=== PATIENT | male | born 1945 | race Caucasian/White ===

== ENCOUNTER 2016-10-31 08:15 | Outpatient (CLI) | payer MEDICARE, OTHER ==
[2016-10-31 13:24] LABS: CREATININE 1.3 mg/dL (0.6-1.2); POTASSIUM 4.5 mmol/L (3.5-5.0)
== END 2016-10-31 08:16 | disposition home or self-care (01) ==
LOC: LAB.WCP 08:15
PROVIDERS: ATTEND Internal Medicine Cardiovascular Disease
DX: I48.91 Unspecified atrial fibrillation (principal)
CPT/HCPCS: 36415; 80048

== ENCOUNTER 2017-10-30 08:00 | Outpatient (CLI) | payer MEDICARE, OTHER ==
[2017-10-30 12:58] LABS: CALCIUM 8.8 mg/dL (8.5-10.3); CREATININE 1.1 mg/dL (0.6-1.2)
== END 2017-10-30 08:01 | disposition home or self-care (01) ==
LOC: LAB.WCP 08:00
PROVIDERS: ATTEND Internal Medicine Cardiovascular Disease
DX: I48.92 Unspecified atrial flutter (principal)
CPT/HCPCS: 36415; 80048

== ENCOUNTER 2019-10-28 09:25 | Outpatient (CLI) | payer MEDICARE, OTHER ==
[2019-10-28 14:05] LABS: CALCIUM 8.9 mg/dL (8.5-10.3); CREATININE 1.1 mg/dL (0.6-1.2)
== END 2019-10-28 23:59 | disposition home or self-care (01) ==
LOC: LAB.WCP 09:25
PROVIDERS: ATTEND Internal Medicine Cardiovascular Disease
DX: I48.92 Unspecified atrial flutter (principal); I71.2 Thoracic aortic aneurysm, without rupture
CPT/HCPCS: 36415; 80048

== ENCOUNTER 2020-04-13 08:34 | Outpatient (CLI) | payer MEDICARE, OTHER ==
[2020-04-13 12:04] LABS: CALCIUM 9.3 mg/dL (8.5-10.3); CREATININE 1.2 mg/dL (0.6-1.2)
== END 2020-04-13 23:59 | disposition home or self-care (01) ==
LOC: LAB.WCP 08:34
PROVIDERS: ATTEND Internal Medicine Cardiovascular Disease
DX: I48.91 Unspecified atrial fibrillation (principal)
CPT/HCPCS: 36415; 80048

== ENCOUNTER 2020-07-04 08:00 | Outpatient (CLI) | payer MEDICARE, OTHER ==
[2020-07-04 13:35] LABS: BASOPHILS # (AUTO) 0.1 10^3/uL (0.0-0.1); BASOPHILS % (AUTO) 0.5 %; EOSINOPHILS # (AUTO) 0.8 10^3/uL (0.0-0.7); EOSINOPHILS % (AUTO) 6.9 %; HGB - HEMOGLOBIN 16.2 g/dL (14.0-18.0); LYMPHOCYTES # (AUTO) 0.5 10^3/uL (1.5-3.5); LYMPHOCYTES % (AUTO) 4.3 %; MEAN CORPUSCULAR HGB CONC 33.4 g/dL (32.0-36.0); MEAN CORPUSCULAR VOLUME 92.9 fL (80.0-94.0); MEAN PLATELET VOLUME 10.7 fL (7.4-11.4); MONOCYTES # (AUTO) 1.4 10^3/uL (0.0-1.0); MONOCYTES % (AUTO) 11.3 %; NEUTROPHILS # (AUTO) 9.3 10^3/uL (1.5-6.6); PLT - PLATELET COUNT 227 10^3/uL (130-450); RED BLOOD COUNT 5.22 10^6/uL (4.70-6.10); RED CELL DISTRIBUTION WIDTH 15.2 % (12.0-15.0); WHITE BLOOD COUNT 12.2 x10^3/uL (4.8-10.8)
[2020-07-04 18:33] LABS: ALBUMIN 3.9 g/dL (3.2-5.5); ALBUMIN/GLOBULIN RATIO 1.4 (1.0-2.2); CALCIUM 9.3 mg/dL (8.5-10.3); CREATININE 1.2 mg/dL (0.6-1.2); TOTAL PROTEIN 6.7 g/dL (6.7-8.2)
== END 2020-07-04 08:01 | disposition home or self-care (01) ==
LOC: LAB.N 08:00
PROVIDERS: ATTEND Nurse Practitioner
DX: L29.9 Pruritus, unspecified (principal)
CPT/HCPCS: 36415; 80053; 85025; 85651

== ENCOUNTER 2020-07-05 10:34 | Emergency (ER) | payer MEDICARE, OTHER ==
--- NOTE | 2020-07-05 12:03 | ED Physician Documentation ---
History of Present Illness - Stated complaint Stated Complaint: RASH - Chief complaint Chief Complaint: Allergic Rx - Additonal information Additional information: 75-year-old male presents the emergency department for evaluation of a diffuse generalized body rash. He reports that it began 8 days ago. Initially it was just on his feet as red patches but is slowly progressed to become generalized. He has multiple raised erythematous macular papular rash on his arms legs and neck. There is normal mucous membrane involvement, cough dyspnea fevers. He did see his primary care doctor 4 days ago and was placed on a 10-day prednisone steroid taper as well as famotidine and cetirizine. he describes the rash as diffusely itch. he is also applying a steroid cream to the rash without relief. he is also taking hydorxizine No changes in baseline medications which include omeprazole and sotalol. He also takes various vitamins. Review of Systems Constitutional: reports: Reviewed and negative Eyes: reports: Reviewed and negative Ears: reports: Reviewed and negative Nose: reports: Reviewed and negative Throat: reports: Dental pain / toothache Cardiac: reports: Reviewed and negative Respiratory: reports: Reviewed and negative GI: reports: Reviewed and negative : reports: Reviewed and negative Skin: reports: Rash Musculoskeletal: reports: Reviewed and negative PD PAST MEDICAL HISTORY - Past Medical History Past Medical History: Yes Cardiovascular: Atrial flutter, Arrhythmia Respiratory: Other Neuro: None Endocrine/Autoimmune: None GI: GERD : None HEENT: None Psych: None Musculoskeletal: Osteoarthritis Derm: None - Past Surgical History General: Colonoscopy, EGD, Other HEENT: Tonsil/Adenoidectomy - Present Medications Home Medications: Ambulatory Orders Medication Instructions Recorded Confirmed Ascorbic Acid [Vitamin C] 100 mg PO DAILY 06/18/13 07/31/18 Aspirin [Lite Coat Aspirin] 81 mg PO DAILY 06/18/13 07/31/18 Cholecalciferol (Vitamin D3) 2,000 unit PO DAILY 06/18/13 07/31/18 [Vitamin D-3] Fluticasone [Flonase] 1 sprays RYAN DAILY PRN 06/18/13 07/31/18 Multivitamin [Multivitamins] 1 each PO DAILY 06/18/13 07/31/18 Sotalol [Betapace] 80 mg PO BID 06/18/13 07/31/18 Vitamin E 100 unit PO DAILY 06/18/13 07/31/18 Magnesium Oxide [Mag Ox] 400 mg PO DAILY 07/31/18 07/31/18 Omeprazole 20 mg PO BID 07/31/18 07/31/18 - Allergies Allergies/Adverse Reactions: Allergies Allergy/AdvReac Type Severity Reaction Status Date / Time No Known Drug Allergies Allergy Verified 07/05/20 11:02 - Social History Does the pt smoke?: No Smoking Status: Never smoker Does the pt drink ETOH?: Yes - Immunizations Immunizations are current?: Yes - POLST Patient has POLST: Yes PD ED PE EXPANDED - General General: Alert, No acute distress, Well developed/nourished - HEENT HEENT: Atraumatic, PERRL, EOMI, Dry mucous membranes - Neck Neck: Supple w/out meningeal sx, No tenderness. No: Adenopathy - Cardiac Cardiac: Regular Rate, Regular Rhythm, Radial strong equal, Pedal strong equal, Cap refill < 2 sec. No: Murmur Present - Respiratory Respiratory: Clear to ausultation tesfaye. No: Distress, Labored - Abdomen Abdomen: Normal Bowel sounds. No: Tender to palpation - Derm Derm: Normal color (diffuse macular papilar rash on arms, legs, torso. there are 2 raidsed, red scaling patches on left torso), Warm and dry, Rash Results - Vitals Vitals: Vital Signs - 24 hr 07/05/20 11:02 Temperature 36.3 C L Heart Rate 69 Respiratory 16 Rate Blood Pressure 124/66 O2 Saturation 97 Oxygen O2 Source Room air PD MEDICAL DECISION MAKING - ED course Complexity details: reviewed results, re-evaluated patient, considered differential, d/w patient ED course: 75-year-old male presents the emergency department for evaluation of diffuse maculopapular rash that began 8 days ago. It is diffusely itchy. He has no previous fevers. He did see his primary care provider about 4 days ago and was started on a 10-day prednisone taper. On his left thorax he does have 2 raised red scaling macular lesions that I think may represent a herald patch. Patient denies that he developed these patches before the rest of the rash but cannot be 100% certain. There is no oral involvement or ocular involvement. He otherwise appears very well with unremarkable vitals. I suspect that this may be a pityriasis rosacea. However he is on a steroid taper. He did have screening labs completed yesterday that were without concern. I have advised him to use calamine lotion to help with itch as he is already on multiple antihistamines and prednisone. Patient was advised to return to the emergency department for any oral or ocular involvement. Any chest pain shortness of breath hemoptysis or fevers Departure - Departure Disposition: 01 Home, Self Care Clinical Impression: Rash Condition: Stable Record reviewed to determine appropriate education?: Yes Follow-Up: She Thomas DO [Primary Care Provider] - Comments: Amadeo is we discussed I think that your rash may be a condition called pityriasis rosea. You have 2 patches on your left chest that look like a herald patch. You are taking the appropriate medications already for itch such as the hydroxyzine, Pepcid and cetirizine. I would discuss the prednisone taper with your primary care provider. If at any point the rash changes, begins to blister, you have rash or blistering in your mouth or in your eyes, develop chest pain or fevers please return to the ER for a second look. As we discussed if this is pityriasis the rash may take weeks to even a few months to resolve. In the short-term I do recommend a cool compress over your chest where itches the most as well as calamine lotion.
[2020-07-05 12:20] VITALS: BP 116/76
== END 2020-07-05 12:25 | disposition home or self-care (01) ==
LOC: ED 10:34
DX: R21 Rash and other nonspecific skin eruption (principal); L29.9 Pruritus, unspecified; Z79.82 Long term (current) use of aspirin
CPT/HCPCS: 99281; 99284

== ENCOUNTER 2020-07-29 15:27 | Emergency (ER) | payer MEDICARE, OTHER ==
--- NOTE | 2020-07-29 15:45 | ED Physician Documentation ---
PD HPI ABD PAIN - Stated complaint Stated Complaint: LOW ABD PX - Chief complaint Chief Complaint: Abd Pain - History obtained from History obtained from: Patient - Treatment prior to arrival Treatment prior to arrival: Pain is worse laying and sitting than it is standing. He has tried numerous Medications at home including aspirin, ibuprofen, and Celebrex, all without relief - Additional information Additional information: 75-year-old gentleman has chronic pelvic pain. Previously seen by urologist and told it was chronic epididymitis. Over the last 4 days the pain has been, progressive and much more severe. It is pelvic and really eating and radiating to the right inguinal and right testicle region. He has had some soft and nonformed and more frequent stools over the last few years and had a colonoscopy for that which was notable for polyps and diverticulosis. Last night the pain was unbearable and he was unable to sleep because of it. He thinks because of pain he had some very mild nausea because of it. He has a history of GERD for which he takes omeprazole and a flutter on sotalol and magnesium but not anticoagulated. Review of Systems Ten Systems: 10 systems reviewed and negative Constitutional: denies: Fever Cardiac: denies: Chest pain / pressure, Palpitations Respiratory: denies: Dyspnea, Cough PD PAST MEDICAL HISTORY - Past Medical History Past Medical History: Yes Cardiovascular: Atrial flutter, Arrhythmia Respiratory: Other Neuro: None Endocrine/Autoimmune: None GI: GERD : None HEENT: None Psych: None Musculoskeletal: Osteoarthritis Derm: None - Past Surgical History General: Colonoscopy, EGD, Other HEENT: Tonsil/Adenoidectomy - Present Medications Home Medications: Ambulatory Orders Medication Instructions Recorded Confirmed Ascorbic Acid [Vitamin C] 100 mg PO DAILY 06/18/13 07/29/20 Aspirin [Lite Coat Aspirin] 81 mg PO DAILY 06/18/13 07/29/20 Cholecalciferol (Vitamin D3) 2,000 unit PO DAILY 06/18/13 07/29/20 [Vitamin D-3] Fluticasone [Flonase] 1 sprays RYAN DAILY PRN 06/18/13 07/29/20 Multivitamin [Multivitamins] 1 each PO DAILY 06/18/13 07/29/20 Sotalol [Betapace] 80 mg PO BID 06/18/13 07/29/20 Vitamin E 100 unit PO DAILY 06/18/13 07/29/20 Magnesium Oxide [Mag Ox] 400 mg PO DAILY 07/31/18 07/29/20 Omeprazole 20 mg PO BID 07/31/18 07/29/20 Docusate Sodium [Dulcolax Stool 100 mg PO BID #30 cap 07/29/20 Softener] Doxepin [SINEquan] 10 mg PO TID PRN #30 cap 07/29/20 Oxycodone HCl/Acetaminophen 1 - 2 each PO Q6H PRN #20 tab 07/29/20 [Percocet 5-325 mg Tablet] Selenium 1 tab PO DAILY 07/29/20 07/29/20 Sulfamethox/Trimeth 800/160 1 each PO BID #20 tab 07/29/20 [Bactrim Ds 800/160] polyethylene glycoL 3350 [Miralax] 17 gm PO DAILY PRN #1 bottle 07/29/20 - Allergies Allergies/Adverse Reactions: Allergies Allergy/AdvReac Type Severity Reaction Status Date / Time No Known Drug Allergies Allergy Verified 07/29/20 15:42 - Social History Does the pt smoke?: No Smoking Status: Never smoker Does the pt drink ETOH?: Yes - Immunizations Immunizations are current?: Yes - POLST Patient has POLST: Yes PD ED PE NORMAL - Vitals Vital signs reviewed: Yes - General General: Alert and oriented X 3, Other (uncomfortable) - HEENT HEENT: PERRL, EOMI - Neck Neck: Supple, no meningeal sign, No bony TTP - Cardiac Cardiac: RRR, No murmur - Respiratory Respiratory: No respiratory distress, Clear bilaterally - Abdomen Abdomen: Soft, Non tender - Male Male : Other (Mild R testicular TTP, no swelling, normal lie) - Back Back: No CVA TTP - Derm Derm: Other (diffuse severe pityriasis) - Extremities Extremities: No edema, No calf tenderness / cord - Neuro Neuro: Alert and oriented X 3, Normal speech Results - Vitals Vitals: Vital Signs - 24 hr 07/29/20 07/29/20 15:29 16:39 Temperature 35.9 C L Heart Rate 57 L 53 L Respiratory 16 16 Rate Blood Pressure 132/71 H 123/81 H O2 Saturation 99 98 Oxygen O2 Source Room air - Labs Labs: Laboratory Tests 07/29/20 07/29/20 07/29/20 15:50 15:50 15:50 WBC 15.6 H RBC 5.50 Hgb 17.2 Hct 50.7 MCV 92.2 MCH 31.3 H MCHC 33.9 RDW 16.5 H Plt Count 185 MPV 9.7 Neut # (Auto) Not Reportable Lymph # (Auto) Not Reportable Brantley # (Auto) Not Reportable Eos # (Auto) Not Reportable Baso # (Auto) Not Reportable Absolute Nucleated RBC Not Reportable Total Counted 100 Band Neuts % (Manual) 3 Abnorm Lymph % (Manual) 0 Nucleated RBC % Not Reportable Neutrophils # (Manual) 14.8 H Lymphocytes # (Manual) 0.2 L Monocytes # (Manual) 0.2 Eosinophils # (Manual) 0.5 Basophils # (Manual) 0.0 Differential Comment MANUAL DIFFERENTIAL WBC Morphology 1+ TOXIC GRANULATION Platelet Estimate NORMAL (130-450,000) Platelet Morphology NORMAL APPEARANCE RBC Morph Micro Appear NORMAL APPEARANCE PT 13.5 H INR 1.2 Sodium 126 L Potassium 4.0 Chloride 88 L Carbon Dioxide 25 Anion Gap 13.0 BUN 32 H Creatinine 1.2 Estimated GFR (MDRD) 59 L Glucose 115 H Calcium 8.7 Total Bilirubin 1.3 H AST 11 ALT 20 Alkaline Phosphatase 71 Total Protein 5.9 L Albumin 3.5 Globulin 2.4 Albumin/Globulin Ratio 1.5 Lipase 30 Urine Color Urine Clarity Urine pH Ur Specific Cotter Urine Protein Urine Glucose (UA) Urine Ketones Urine Occult Blood Urine Nitrite Urine Bilirubin Urine Urobilinogen Ur Leukocyte Esterase Ur Microscopic Review Urine Culture Comments 07/29/20 17:50 WBC RBC Hgb Hct MCV MCH MCHC RDW Plt Count MPV Neut # (Auto) Lymph # (Auto) Brantley # (Auto) Eos # (Auto) Baso # (Auto) Absolute Nucleated RBC Total Counted Band Neuts % (Manual) Abnorm Lymph % (Manual) Nucleated RBC % Neutrophils # (Manual) Lymphocytes # (Manual) Monocytes # (Manual) Eosinophils # (Manual) Basophils # (Manual) Differential Comment WBC Morphology Platelet Estimate Platelet Morphology RBC Morph Micro Appear PT INR Sodium Potassium Chloride Carbon Dioxide Anion Gap BUN Creatinine Estimated GFR (MDRD) Glucose Calcium Total Bilirubin AST ALT Alkaline Phosphatase Total Protein Albumin Globulin Albumin/Globulin Ratio Lipase Urine Color YELLOW Urine Clarity CLEAR Urine pH 6.0 Ur Specific Cotter <=1.005 Urine Protein NEGATIVE Urine Glucose (UA) NEGATIVE Urine Ketones NEGATIVE Urine Occult Blood NEGATIVE Urine Nitrite NEGATIVE Urine Bilirubin NEGATIVE Urine Urobilinogen 0.2 (NORMAL) Ur Leukocyte Esterase NEGATIVE Ur Microscopic Review NOT INDICATED Urine Culture Comments NOT INDICATED PD MEDICAL DECISION MAKING - ED course ED course: 75-year-old gentleman with a long history of right testicular pain and occasional pelvic pain presents with this as bad as it has ever been over the last few days. He has a fairly benign abdominal exam and mildly tender scrotal exam on the right. No evidence of hernia. No clinical evidence of torsion. Labs show an elevated white count with left shift, total white count was 15.6. Chemistries are notable for sodium of 126, BUN of 32. CT of the abdomen pelvis shows gallstones, but this is not consistent with a clinical syndrome, he has diverticulosis without obvious diverticulitis. No evidence of urinary tract stone. Ultrasound of the scrotum showed normal flow. Heterogeneity of the epididymi but no cause of pain. His pain improved after divided doses of Dilaudid and Toradol. During his ED course he remained nontender to abdominal examination and was feeling better. Findings were discussed with him and his . Note made that the leukocytosis could certainly be from the fact that he is on prednisone for his pityriasis rosea currently. He was offered observation stay in the hospital for monitoring of his sodium, pain control and observation of his abdominal pain which he declined. At this juncture we will treat him as sort of a subclinical acute on chronic epididymitis with Bactrim noting that he cannot take Cipro as it interacts with the sotalol. Also he is having a lot of itching from the pityriasis and poor sleep so we will add doxepin to the regimen as well. Departure - Departure Disposition: 01 Home, Self Care Clinical Impression: Pelvic pain in male, Testicular pain, right, Epididymitis, Hyponatremia Condition: Good Record reviewed to determine appropriate education?: Yes Instructions: ED Epididymitis Follow-Up: She Thomas DO [Primary Care Provider] - Prescriptions: Sulfamethox/Trimeth 800/160 [Bactrim Ds 800/160] 1 each PO BID #20 tab Docusate Sodium [Dulcolax Stool Softener] 100 mg PO BID #30 cap polyethylene glycoL 3350 [Miralax] 17 gm PO DAILY PRN #1 bottle PRN Reason: Constipation Oxycodone HCl/Acetaminophen [Percocet 5-325 mg Tablet] 1 - 2 each PO Q6H PRN #20 tab PRN Reason: pain Doxepin [SINEquan] 10 mg PO TID PRN #30 cap PRN Reason: Itching Comments: As discussed, your findings today show that you have gallstones and diverticulosis but not necessarily diverticulitis. Some chronic changes of both epididymitis, and elevated white count which could be from infection, inflammation, or the steroids. Your sodium is low, lower than it has been for you. This could also be partially due to the steroids. For that please limit the amount of water you drink to 2 to 3 L/day and that should be rechecked with Dr. Thomas next week. We are treating you with Bactrim for potential epididymitis, note that this is not the usual antibiotic for this issue, but the usual antibiotic is contraindicated with your sotalol. Return if worsening.
[2020-07-29 15:58] LABS: BASOPHILS % (AUTO) 0.3 %; HGB - HEMOGLOBIN 17.2 g/dL (14.0-18.0); MONOCYTES % (AUTO) 2.4 %
[2020-07-29] MEDS ORDERED: HYDROmorphone 1 MG/ML CARPUJECT IVP STA ×2 (15:58→16:31)
[2020-07-29] MEDS ORDERED: SODIUM CHLORIDE 0.9% 1,000 ML IV STA (15:58)
[2020-07-29] MEDS ORDERED: ONDANSETRON 4 MG/2 ML VIAL IVP STA (15:58)
[2020-07-29 16:02] LABS: HCT - HEMATOCRIT 50.7 % (42.0-52.0); LYMPHOCYTES % (AUTO) 3.7 %; MEAN CORPUSCULAR HEMOGLOBIN 31.3 pg (27.0-31.0); MEAN CORPUSCULAR HGB CONC 33.9 g/dL (32.0-36.0); MEAN CORPUSCULAR VOLUME 92.2 fL (80.0-94.0); MEAN PLATELET VOLUME 9.7 fL (7.4-11.4); NEUTROPHILS % (AUTO) 88.1 %; PLT - PLATELET COUNT 185 10^3/uL (130-450); RED CELL DISTRIBUTION WIDTH 16.5 % (12.0-15.0); WHITE BLOOD COUNT 15.6 x10^3/uL (4.8-10.8)
[2020-07-29 16:04] LABS: ABNORMAL LYMPHS % (MANUAL) 0 %; INR 1.2 (0.8-1.2); PT - PROTHROMBIN TIME 13.5 secs (9.9-12.6)
[2020-07-29 16:11] LABS: ALBUMIN 3.5 g/dL (3.2-5.5); ALBUMIN/GLOBULIN RATIO 1.5 (1.0-2.2); BILIRUBIN,TOTAL 1.3 mg/dL (0.2-1.0); CALCIUM 8.7 mg/dL (8.5-10.3); CREATININE 1.2 mg/dL (0.6-1.2); TOTAL PROTEIN 5.9 g/dL (6.7-8.2)
[2020-07-29] MEDS ORDERED: IOVERSOL 320 100 ML VIAL IVP ONE ×2 (16:14→17:15)
[2020-07-29 16:24] LABS: BAND NEUTROPHILS % (MANUAL) 3 %; EOSINOPHILS # (MANUAL) 0.5 10^3/uL (0-0.7); LYMPHOCYTES # (MANUAL) 0.2 10^3/uL (1.5-3.5); LYMPHOCYTES % (MANUAL) 1 %; MONOCYTES # (MANUAL) 0.2 10^3/uL (0.0-1.0); NEUTROPHILS # (MANUAL) 14.8 10^3/uL (1.5-6.6); PLATELET ESTIMATE, MANUAL NORMAL (130-450,000) (NORMAL); PLATELET MORPHOLOGY NORMAL APPEARANCE (NORMAL); RBC MORPHOLOGY (MULTIPLE) NORMAL APPEARANCE (NORMAL); WBC MORPHOLOGY (MULTIPLE) 1+ TOXIC GRANULATION (NORMAL)
[2020-07-29 16:25] LABS: DIFFERENTIAL COMMENT MANUAL DIFFERENTIAL
[2020-07-29] MEDS ORDERED: KETOROLAC 30 MG/ML VIAL IVP STA (16:31)
[2020-07-29 16:40] VITALS: BP 123/81
--- NOTE | 2020-07-29 17:41 | CT Report ---
PROCEDURE: Abdomen/Pelvis W INDICATIONS: Low abd pain IV only CONTRAST: IV CONTRAST: Optiray 320 ml: 100 PO CONTRAST: *NO PO CONTRAST TECHNIQUE: After the administration of contrast, 5 mm thick sections acquired from the diaphragms to the sym physis. 5 mm thick coronal and sagittal reformats were acquired. For radiation dose reduction, the following was used: automated exposure control, adjustment of mA and/or kV according to patient size . COMPARISON: None. FINDINGS: Image quality: Excellent. ABDOMEN: Lung bases: Lung bases are clear. Heart size is normal. Solid organs: Liver and spleen are normal in size and enhancement. Gallbladder contains multiple sm all to moderate-sized faintly calcified gallstones, none of which appear to be obstructive or associa scott with evidence of acute cortical cysts sinuses. Biliary system is non dilated. Pancreas enhances normally. No adrenal nodules. Kidneys demonstrate normal size and enhancement, without hydronephro sis. Peritoneum and bowel: Bowel loops demonstrate normal wall thickness and caliber. No free fluid or a ir. Nodes and vessels: No retroperitoneal or mesenteric adenopathy by size criteria. Aorta and inferior vena cava are normal in size. Miscellaneous: No ventral hernias. PELVIS: Genitourinary: Bladder wall thickness is normal. Miscellaneous: No inguinal hernias or adenopathy. Extensive sigmoid diverticulosis is present witho ut definite acute diverticulitis. Bones: No suspicious bony lesions. No vertebral body compression fractures. IMPRESSION: Multiple gallstones are present within the gallbladder lumen of a size that could produc e cystic duct or common duct obstruction but currently no ductal calculus is suspected. Sigmoid diverticulosis is prominent but there is no acute diverticulitis identified at this time. No distal urinary tract stone is found either. Reviewed by: Pacheco Alba MD on 07/29/2020 5:39 PM PST Approved by: Pacheco Alba MD on 07/29/2020 5:39 PM PST Station ID: [id number]
--- NOTE | 2020-07-29 17:43 | Ultrasound Report ---
PROCEDURE: Testicle w/Doppler INDICATIONS: R testicular pain which is worsening over the prior 4 days. Chronic testicular pain for 15 years, prior vasectomy 25 years ago. TECHNIQUE: Real-time scanning was performed of the scrotum and testicles, with image documentation. Color and p ulse Doppler interrogation was performed of both testicles. COMPARISON: CT scanning of the abdomen/pelvis of earlier today. FINDINGS: Right: Testicle is normal in size at 2.8 x 3.2 x 4.9 cm, and homogenous in echotexture. Epididymis is normal in overall size and morphology. No hydrocele or varicoceles. Overlying scrotal skin is no rmal in thickness. There is a small loose body within the right hemiscrotum, measuring 2 x 3 x 4 mm. The epididymis is heterogeneous Left: Testicle is normal in size at 2.3 x 2.9 x 5.0 cm, and homogeneous in echotexture. Epididymis is normal in overall size and morphology. No hydrocele or varicoceles. Overlying scrotal skin is no rmal in thickness. The epididymis is heterogeneous Doppler: Color and pulse Doppler demonstrate normal and symmetric arterial flow in both testicles. IMPRESSION: No evidence of testicular torsion bilaterally. Reported prior vasectomy bilaterally with chronic scro tabitha pain. The current examination shows mild heterogeneity to the epididymis bilaterally but no hyper emia that would indicate likelihood of epididymitis or orchitis. Currently no emergent finding is veronica ntified. Reviewed by: Pacheco Alba MD on 07/29/2020 5:42 PM PST Approved by: Pacheco Alba MD on 07/29/2020 5:42 PM PST Station ID: [id number]
[2020-07-29 18:12] LABS: BILIRUBIN,URINE NEGATIVE (NEGATIVE); GLUCOSE, URINE (UA) NEGATIVE (NEGATIVE); KETONES,URINE (UA) NEGATIVE (NEGATIVE); LEUKOCYTE ESTERASE, URINE NEGATIVE (NEGATIVE); NITRITE,URINE NEGATIVE (NEGATIVE); OCCULT BLOOD,URINE NEGATIVE (NEGATIVE); PROTEIN,URINE NEGATIVE (NEGATIVE); UROBILINOGEN,URINE 0.2 (NORMAL) E.U./dL (NORMAL)
[2020-07-29 18:13] LABS: CLARITY,URINE CLEAR (CLEAR)
[2020-07-29] MEDS ORDERED: HYDROmorphone 2 MG/ML VIAL IVP STA (18:28)
[2020-07-29] MEDS ORDERED: SULFAMETH/TRIMETH DS 800/160 MG TABLET PO STA (18:29)
[2020-07-29] MEDS ORDERED: oxyCODONE/ACET 5/325 Prepack 4 PO STA (18:33)
== END 2020-07-29 18:55 | disposition home or self-care (01) ==
LOC: ED 15:27
DX: N45.1 Epididymitis (principal); N50.811 Right testicular pain; R10.2 Pelvic and perineal pain; G89.29 Other chronic pain; E87.1 Hypo-osmolality and hyponatremia; L42 Pityriasis rosea; K80.20 Calculus of gallbladder without cholecystitis without obstruction; K57.30 Diverticulosis of large intestine without perforation or abscess without bleeding; Z79.82 Long term (current) use of aspirin
CPT/HCPCS: 74177; 76870; 80053; 81003; 83690; 85025; 85610; 93975; 96374; 96375; 96376; 99284; 99285; A9270; J1170; Q9967; 81001; 87086

== ENCOUNTER 2020-08-02 13:36 | Outpatient (CLI) | payer MEDICARE, OTHER ==
[2020-08-02 18:10] LABS: BASOPHILS % (AUTO) 0.3 %; EOSINOPHILS # (AUTO) 0.9 10^3/uL (0.0-0.7); HGB - HEMOGLOBIN 16.1 g/dL (14.0-18.0); LYMPHOCYTES # (AUTO) 0.6 10^3/uL (1.5-3.5); LYMPHOCYTES % (AUTO) 5.2 %; MEAN CORPUSCULAR HEMOGLOBIN 30.8 pg (27.0-31.0); MEAN CORPUSCULAR HGB CONC 33.5 g/dL (32.0-36.0); MEAN CORPUSCULAR VOLUME 91.8 fL (80.0-94.0); MEAN PLATELET VOLUME 10.6 fL (7.4-11.4); MONOCYTES # (AUTO) 0.5 10^3/uL (0.0-1.0); MONOCYTES % (AUTO) 4.2 %; NEUTROPHILS # (AUTO) 8.8 10^3/uL (1.5-6.6); NEUTROPHILS % (AUTO) 80.6 %; PLT - PLATELET COUNT 113 10^3/uL (130-450); RED BLOOD COUNT 5.23 10^6/uL (4.70-6.10); RED CELL DISTRIBUTION WIDTH 16.5 % (12.0-15.0); WHITE BLOOD COUNT 10.9 x10^3/uL (4.8-10.8)
[2020-08-02 19:12] LABS: ALBUMIN 3.1 g/dL (3.2-5.5); ALBUMIN/GLOBULIN RATIO 1.6 (1.0-2.2); ALKALINE PHOSPHATASE 79 IU/L (42-121); ALT ALANINE AMINOTRANSFERASE 24 IU/L (10-60); AST ASPARTATE AMINOTRANSFERASE 20 IU/L (10-42); BILIRUBIN,TOTAL 0.9 mg/dL (0.2-1.0); BUN - BLOOD UREA NITROGEN 30 mg/dL (6-20); CALCIUM 8.9 mg/dL (8.5-10.3); CARBON DIOXIDE - CO2 24 mmol/L (21-32); CHLORIDE 96 mmol/L (101-111); CHOL/HDL RATIO 6.1 (<5.0); CHOLESTEROL 147 mg/dL; CREATININE 1.6 mg/dL (0.6-1.2); GLUCOSE 118 mg/dL (70-100); HDL CHOLESTEROL 24 mg/dL; LDL CHOLESTEROL,CALCULATED 99 mg/dL; LDL/HDL RATIO 4.1 (<3.6); TOTAL PROTEIN 5.1 g/dL (6.7-8.2); VLDL CHOLESTEROL 24 mg/dL
== END 2020-08-02 23:59 | disposition home or self-care (01) ==
LOC: LAB.WCP 13:36
PROVIDERS: ATTEND Family Medicine
DX: I48.92 Unspecified atrial flutter (principal); E87.1 Hypo-osmolality and hyponatremia; N52.9 Male erectile dysfunction, unspecified; L20.9 Atopic dermatitis, unspecified; E78.5 Hyperlipidemia, unspecified
CPT/HCPCS: 36415; 80053; 80061; 83721; 83930; 83935; 84153; 84300; 84443; 85025

== ENCOUNTER 2020-08-08 22:51 | Outpatient (CLI) | payer MEDICARE, OTHER | END 2020-08-08 22:52 | disposition left against medical advice (07) | LOC: EMS 22:51 | DX: M54.9 Dorsalgia, unspecified (principal); R11.0 Nausea; R53.1 Weakness ==

== ENCOUNTER 2020-08-10 11:42 | Outpatient (CLI) | payer MEDICARE, OTHER ==
--- NOTE | 2020-08-10 16:38 | MRI Report ---
PROCEDURE: MRCP W/O INDICATIONS: GALLSTONES, ABD PAIN CONTRAST: None TECHNIQUE: Coronal ultra fast SE through the abdomen, axial 2-D spoiled GE in- and [id number], and breath-hold T2 FSE with fat saturation through the biliary system and pancreas. Oblique coronal and axial thin- slice ultra fast SE, radial thick-slab ultra fast SE centered on the extrahepatic bile ducts. COMPARISON: CT abdomen pelvis 07/29/2020 FINDINGS: Image quality: Adequate, though there was motion on multiple sequences despite sequence repeats. Biliary system and pancreas: The gallbladder is mildly distended and contains numerous dependently l ayering stones. Since the prior CT scan, there is been interval development of pericholecystic fluid. There is no common duct dilatation. There is moderate periportal edema without significant intrahepa tic biliary dilatation. The pancreas is normal without ductal dilatation. Other solid organs: Interval development of splenomegaly now measuring 19.4 x 16.1 cm. There is trace perihepatic and perisplenic ascites. The liver size is normal. No adrenal nodules. Both kidneys are normal in size, without hydronephrosis. Nodes and vessels: Diffuse retroperitoneal adenopathy is now present. Numerous lymph nodes are now se en in the splenic hilum. Extensive periportal adenopathy. Aorta and inferior vena cava are normal in size. Bowel and peritoneum: Unenhanced bowel loops are normal in caliber. No free fluid. Lung bases: Bilateral low axillary adenopathy. Small right pleural effusion. Heart size is normal. Bones and soft tissues: No ventral hernias. Bone marrow is of normal overall signal. IMPRESSION: 1. Findings concerning for acute calculus cholecystitis. 2. Splenomegaly and extensive adenopathy suggestive of reaction to an infectious or inflammatory proc ess which may be systemic, neoplasm is felt less likely given rapid development of this finding. 3. Small right pleural effusion and trace intraperitoneal ascites. 4. Findings discussed with Dr. Thomas at 1536 hours [place] standard time. Reviewed by: Elaine Tsang MD on 08/10/2020 3:37 PM [facility] Approved by: Elaine Tsang MD on 08/10/2020 3:37 PM [facility] Station ID: [id number]
== END 2020-08-10 11:43 | disposition home or self-care (01) ==
LOC: DI 11:42
PROVIDERS: ATTEND Family Medicine
DX: K80.20 Calculus of gallbladder without cholecystitis without obstruction (principal); R10.9 Unspecified abdominal pain

== ENCOUNTER 2020-08-10 11:59 | Outpatient (CLI) | payer MEDICARE, OTHER ==
[2020-08-10 13:16] LABS: BASOPHILS # (AUTO) 0.1 10^3/uL (0.0-0.1); BASOPHILS % (AUTO) 0.9 %; EOSINOPHILS # (AUTO) 0.8 10^3/uL (0.0-0.7); HGB - HEMOGLOBIN 17.2 g/dL (14.0-18.0); LYMPHOCYTES # (AUTO) 1.4 10^3/uL (1.5-3.5); LYMPHOCYTES % (AUTO) 13.8 %; MEAN CORPUSCULAR HEMOGLOBIN 30.9 pg (27.0-31.0); MEAN CORPUSCULAR HGB CONC 34.7 g/dL (32.0-36.0); MEAN CORPUSCULAR VOLUME 88.9 fL (80.0-94.0); MEAN PLATELET VOLUME 10.6 fL (7.4-11.4); MONOCYTES # (AUTO) 0.6 10^3/uL (0.0-1.0); NEUTROPHILS # (AUTO) 6.9 10^3/uL (1.5-6.6); NEUTROPHILS % (AUTO) 70.1 %; PLT - PLATELET COUNT 81 10^3/uL (130-450); RED BLOOD COUNT 5.57 10^6/uL (4.70-6.10); RED CELL DISTRIBUTION WIDTH 16.7 % (12.0-15.0); WHITE BLOOD COUNT 9.8 x10^3/uL (4.8-10.8)
[2020-08-10 13:26] LABS: ALBUMIN 2.8 g/dL (3.2-5.5); ALBUMIN/GLOBULIN RATIO 1.1 (1.0-2.2); BILIRUBIN,TOTAL 1.2 mg/dL (0.2-1.0); CREATININE 2.8 mg/dL (0.6-1.2); TOTAL PROTEIN 5.4 g/dL (6.7-8.2)
[2020-08-10 13:33] LABS: CALCIUM 12.1 mg/dL (8.5-10.3)
[2020-08-10 14:13] LABS: RBC MORPHOLOGY (MULTIPLE) 3+ ANISOCYTOSIS (NORMAL)
== END 2020-08-10 12:00 | disposition home or self-care (01) ==
LOC: LAB 11:59
PROVIDERS: ATTEND Family Medicine
DX: K80.20 Calculus of gallbladder without cholecystitis without obstruction (principal); L50.9 Urticaria, unspecified; Z20.822 Contact with and (suspected) exposure to COVID-19
CPT/HCPCS: 36415; 80053; 83690; 85025

== ENCOUNTER 2020-08-10 13:39 | Emergency (ER) | payer MEDICARE, OTHER ==
[2020-08-10] MEDS ORDERED: SODIUM CHLORIDE 0.9% 1,000 ML IV STA (13:52)
--- NOTE | 2020-08-10 14:22 | ED Physician Documentation ---
PD HPI ALTERED MENTAL STATUS - Stated complaint Stated Complaint: CONFUSED - Chief complaint Chief Complaint: Neuro - History obtained from History obtained from: Patient, Family - History of Present Illness Timing - duration: Weeks Timing - details: Gradual onset Quality / character: Less responsive, Confused Associated symptoms: No: Fever, Headache, Stiff neck, Dyspnea, Cough, NVD, Urinary sx, General weakness, Focal weakness, Seizure activity, Syncope Contributing factors: No: Anticoagulated, Diabetic Basline status: Alert and oriented X 3, Ambulatory, Independent - Additional information Additional information: Patient is a 75-year-old male who presents to the emergency department with increasing confusion over the past week or so. Also increasing weakness over the past several weeks. Was seen here recently and started on Bactrim. His sodium was noted to be low at that time, was rechecked with his doctor and it had improved. Patient came to the hospital today for an outpatient lab draw. decided to check him into the emergency department for the increasing weakness. 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 No new medications other than the Bactrim. He is on a steroid taper as well. He has a diffuse body rash that has been there for several weeks. Nothing seems to make it better or worse. Denies any trauma or falls. No focal neurological deficits. Review of Systems Ten Systems: 10 systems reviewed and negative Constitutional: denies: Fever, Chills Eyes: denies: Photophobia Ears: denies: Ear pain Throat: denies: Sore throat Cardiac: denies: Chest pain / pressure, Palpitations Respiratory: denies: Dyspnea, Cough GI: denies: Vomiting, Diarrhea Skin: denies: Rash Musculoskeletal: denies: Neck pain, Back pain Neurologic: reports: Generalized weakness. denies: Focal weakness, Numbness, Headache, Head injury, LOC PD PAST MEDICAL HISTORY - Past Medical History Cardiovascular: Atrial flutter, Arrhythmia Respiratory: Other Neuro: None Endocrine/Autoimmune: None GI: GERD : None HEENT: None Psych: None Musculoskeletal: Osteoarthritis Derm: None - Past Surgical History General: Colonoscopy, EGD, Other HEENT: Tonsil/Adenoidectomy - Present Medications Home Medications: Ambulatory Orders Medication Instructions Recorded Confirmed Ascorbic Acid [Vitamin C] 100 mg PO DAILY 06/18/13 07/29/20 Aspirin [Lite Coat Aspirin] 81 mg PO DAILY 06/18/13 07/29/20 Cholecalciferol (Vitamin D3) 2,000 unit PO DAILY 06/18/13 07/29/20 [Vitamin D-3] Fluticasone [Flonase] 1 sprays RYAN DAILY PRN 06/18/13 07/29/20 Multivitamin [Multivitamins] 1 each PO DAILY 06/18/13 07/29/20 Sotalol [Betapace] 80 mg PO BID 06/18/13 07/29/20 Vitamin E 100 unit PO DAILY 06/18/13 07/29/20 Magnesium Oxide [Mag Ox] 400 mg PO DAILY 07/31/18 07/29/20 Omeprazole 20 mg PO BID 07/31/18 07/29/20 Docusate Sodium [Dulcolax Stool 100 mg PO BID #30 cap 07/29/20 Softener] Doxepin [SINEquan] 10 mg PO TID PRN #30 cap 07/29/20 Oxycodone HCl/Acetaminophen 1 - 2 each PO Q6H PRN #20 tab 07/29/20 [Percocet 5-325 mg Tablet] Selenium 1 tab PO DAILY 07/29/20 07/29/20 Sulfamethox/Trimeth 800/160 1 each PO BID #20 tab 07/29/20 [Bactrim Ds 800/160] polyethylene glycoL 3350 [Miralax] 17 gm PO DAILY PRN #1 bottle 07/29/20 - Allergies Allergies/Adverse Reactions: Allergies Allergy/AdvReac Type Severity Reaction Status Date / Time No Known Drug Allergies Allergy Verified 08/10/20 13:48 - Social History Does the pt smoke?: No Smoking Status: Never smoker Does the pt drink ETOH?: Yes - Immunizations Immunizations are current?: Yes - POLST Patient has POLST: Yes PD ED PE NORMAL - Vitals Vital signs reviewed: Yes - General General: No acute distress, Well developed/nourished, Other (Patient is alert, oriented to person and place. Not to time. Appears drowsy in the emergency department.) - HEENT HEENT: PERRL, Other (Dry lips and tongue) - Neck Neck: Supple, no meningeal sign - Cardiac Cardiac: RRR, Strong equal pulses - Respiratory Respiratory: No respiratory distress, Clear bilaterally - Abdomen Abdomen: Soft, Non tender, Non distended - Derm Derm: Warm and dry, Other (Diffuse erythematous rash over the entire body. No blistering. 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, No motor deficit, No sensory deficit, Normal speech Eye Opening: Spontaneous Motor: Obeys Commands Verbal: Confused GCS Score: 14 - Psych Psych: Normal mood, Normal affect Results - Vitals Vitals: Vital Signs - 24 hr 08/10/20 08/10/20 08/10/20 13:42 16:24 18:29 Temperature 36.0 C L 35.6 C L Heart Rate 72 73 73 Respiratory 16 19 18 Rate Blood Pressure 94/58 L 106/72 97/69 O2 Saturation 97 96 93 08/10/20 20:00 Temperature Heart Rate 74 Respiratory Rate Blood Pressure 104/71 O2 Saturation 96 Oxygen O2 Source Room air - EKG (time done) 1410 Rate: Rate (enter#) (67) Rhythm: NSR [place]: Normal Intervals: Normal ND QRS: Normal Ischemia: Normal ST segments, Other (late R wave transition) - Labs Labs: Laboratory Tests 08/10/20 08/10/20 08/10/20 13:00 13:00 13:00 ESR 1 Sodium Potassium Chloride Carbon Dioxide Anion Gap BUN Creatinine Estimated GFR (MDRD) Glucose Lactic Acid Calcium Ammonia C-Reactive Protein TSH 5.07 PTH Intact Cortisol 4pm Sample 50.4 Nasal Adenovirus (PCR) Nasal B. parapertussis DNA (PCR) Nasal Coronavir 229E PCR Nasal Coronavir HKU1 PCR Nasal Coronavir NL63 PCR Nasal Coronavir OC43 PCR Nasal Enterovir/Rhinovir PCR Nasal Influenza B PCR Nasal Influenza A PCR Nasal Parainfluen 1 PCR Nasal Parainfluen 2 PCR Nasal Parainfluen 3 PCR Nasal Parainfluen 4 PCR Nasal RSV (PCR) Nasal B.pertussis DNA PCR Nasal C.pneumoniae (PCR) Ryan Human Metapneumo PCR Nasal M.pneumoniae (PCR) Nasal SARS-CoV-2 (PCR) 08/10/20 08/10/20 08/10/20 13:00 13:00 14:15 ESR Sodium Potassium Chloride Carbon Dioxide Anion Gap BUN Creatinine Estimated GFR (MDRD) Glucose Lactic Acid Calcium Ammonia 34.4 C-Reactive Protein 5.2 H TSH PTH Intact 1 L Cortisol 4pm Sample Nasal Adenovirus (PCR) Nasal B. parapertussis DNA (PCR) Nasal Coronavir 229E PCR Nasal Coronavir HKU1 PCR Nasal Coronavir NL63 PCR Nasal Coronavir OC43 PCR Nasal Enterovir/Rhinovir PCR Nasal Influenza B PCR Nasal Influenza A PCR Nasal Parainfluen 1 PCR Nasal Parainfluen 2 PCR Nasal Parainfluen 3 PCR Nasal Parainfluen 4 PCR Nasal RSV (PCR) Nasal B.pertussis DNA PCR Nasal C.pneumoniae (PCR) Ryan Human Metapneumo PCR Nasal M.pneumoniae (PCR) Nasal SARS-CoV-2 (PCR) 08/10/20 08/10/20 08/10/20 14:15 15:34 17:45 ESR Sodium Potassium Chloride Carbon Dioxide Anion Gap BUN Creatinine Estimated GFR (MDRD) Glucose Lactic Acid 6.0 H* 5.1 H* Calcium Ammonia C-Reactive Protein TSH PTH Intact Cortisol 4pm Sample Nasal Adenovirus (PCR) NOT DETECTED Nasal B. parapertussis DNA (PCR) NOT DETECTED Nasal Coronavir 229E PCR NOT DETECTED Nasal Coronavir HKU1 PCR NOT DETECTED Nasal Coronavir NL63 PCR NOT DETECTED Nasal Coronavir OC43 PCR NOT DETECTED Nasal Enterovir/Rhinovir PCR NOT DETECTED Nasal Influenza B PCR NOT DETECTED Nasal Influenza A PCR NOT DETECTED Nasal Parainfluen 1 PCR NOT DETECTED Nasal Parainfluen 2 PCR NOT DETECTED Nasal Parainfluen 3 PCR NOT DETECTED Nasal Parainfluen 4 PCR NOT DETECTED Nasal RSV (PCR) NOT DETECTED Nasal B.pertussis DNA PCR NOT DETECTED Nasal C.pneumoniae (PCR) NOT DETECTED Ryan Human Metapneumo PCR NOT DETECTED Nasal M.pneumoniae (PCR) NOT DETECTED Nasal SARS-CoV-2 (PCR) NOT DETECTED 08/10/20 08/10/20 17:45 18:48 ESR Sodium 125 L Potassium 5.4 H Chloride 87 L Carbon Dioxide 21 Anion Gap 17.0 H BUN 58 H Creatinine 2.5 H Estimated GFR (MDRD) 25 L Glucose 68 L Lactic Acid 4.8 H* Calcium 12.2 H* Ammonia C-Reactive Protein TSH PTH Intact Cortisol 4pm Sample Nasal Adenovirus (PCR) Nasal B. parapertussis DNA (PCR) Nasal Coronavir 229E PCR Nasal Coronavir HKU1 PCR Nasal Coronavir NL63 PCR Nasal Coronavir OC43 PCR Nasal Enterovir/Rhinovir PCR Nasal Influenza B PCR Nasal Influenza A PCR Nasal Parainfluen 1 PCR Nasal Parainfluen 2 PCR Nasal Parainfluen 3 PCR Nasal Parainfluen 4 PCR Nasal RSV (PCR) Nasal B.pertussis DNA PCR Nasal C.pneumoniae (PCR) Ryan Human Metapneumo PCR Nasal M.pneumoniae (PCR) Nasal SARS-CoV-2 (PCR) - Rads (name of study) head CT Radiology: Prelim report reviewed, EMP read contemporaneously, See rad report cxr Radiology: Prelim report reviewed, EMP read contemporaneously, See rad report PD MEDICAL DECISION MAKING - ED course Complexity details: reviewed results, re-evaluated patient, considered differential, d/w patient, d/w proposal consultant ED course: Patient had an outpatient lab draw just prior to arrival in the emergency department. Therefore these labs were not repeated in the emergency department. Labs were significant for thrombocytopenia, platelets in the 80s. Acute renal failure, baseline creatinine is around 1-1.2, now at 2.8. Significant hyponatremia, down to 122. Mildly hyperkalemic at 5.4. No EKG changes. Also hypochloremic. Appears significantly dehydrated. We will rehydrate gently with IV fluids given his altered mental status and significant hyponatremia to minim ize the risk of cerebral edema and central pontine myelinolysis. Head CT ordered. Chest x-ray ordered. Head CT without acute abnormality. Chest x-ray without acute abnormality. Patient steadily improved in the emergency department. White blood cell count is normal. Lactate is elevated, likely more to hypoperfusion than sepsis. The Bactrim may be causing the thrombocytopenia and worsening renal failure. Patient's MRCP from earlier today shows acute cholecystitis. This was discovered after admission to the hospitalist but before the patient had gone to the floor. Dr. Coyle consulted Dr. Gilbert, general surgery who recommended transfer for possible cholecystostomy tube. Dr. Coyle coordinated the transfer with [facility] in [place], he completed the COBRA forms and the patient will be transferred to [facility] in [place]. Patient steadily improved while in the emergency department. He is awake, alert and oriented. Given Zosyn. This document was made in part using voice recognition software. While efforts are made to proofread this document, sound alike and grammatical errors may occur. Departure - Departure Disposition: 02 Transfer Acute Care Hosp Clinical Impression: Hyponatremia, Hypochloremia, Hyperkalemia, Hypercalcemia, Weakness, Cholecystitis, Rash, Thrombocytopenia Altered mental status Qualifiers: Altered mental status type: somnolence Qualified Code(s): R40.0 - Somnolence Condition: Stable Discharge Date/Time: 08/10/20 21:00
[2020-08-10] MEDS ORDERED: SODIUM CHLORIDE FLUSH 0.9% 10 ML SYRINGE IVP PRN (16:07)
[2020-08-10] MEDS ORDERED: ONDANSETRON 4 MG/2 ML VIAL IVP PRN (16:07)
[2020-08-10] MEDS ORDERED: ONDANSETRON ODT 4 MG TABLET TL PRN (16:07)
--- NOTE | 2020-08-10 16:18 | HISTORY & PHYSICAL EXAMINATION ---
Chief Complaint - Chief Complaint Chief Complaint: Weakness History of Present Illness - Admitted From Admitted From:: Home - History Obtained From Records Reviewed: Yes History obtained from: Patient, Spouse, ER Physician, EMr Exam Limitations: Patient is altered and a poor historian at times - History of Present Illness HPI Comment/Other: 75-year-old male with a past medical history significant for atrial flutter on sotalol, GERD who presents today due to increasing weakness over the past 2 days. Most of the history obtained from the as he is lethargic and unable provide an accurate history although he is able to answer questions albeit slowly. His told me that he was seen in the ER back in early June for a rash for which she had already been on prednisone. He was continued on the prednisone and his rash has slightly improved but still remains present predominate over his abdomen as well as upper and lower extremities. She states he was then seen in the ER about a week ago for lower abdominal pain diagnosed epididymitis for which he was discharged on Bactrim. He had a CT of the abdomen pelvis that time which showed multiple gallstones but no concern for cholecystitis. He followed up with his primary care provider a couple of days later he continued to have epigastric abdominal pain and so MRCP was ordered. This was obtained today as well as repeat labs as he had hyponatremia from labs drawn just over a week ago and the was concerned he was becoming more weak. His significant weakness, his brought him to the emergency department after the MRCP and labs before they were even resulted as he has just been declining. She states that normally he is quite sharp and independent but over the past 2 days he has become progressively lethargic and weak and has not ate very much. She states his rash overall is better and he remains on prednisone. He did not have any change in medications prior to the beginning of the rash or change in detergent. It has improved predominantly over the abdomen but is still quite prominent. The patient today complains of epigastric abdominal pain. He denies any chest pain or dyspnea. He states he does have a sore throat and his notes that set him on for couple weeks now prior to the rash. She also noted to ulcerations in his mouth during that time. He does report feeling confused and weak. He reports a poor appetite. He has not had fevers or chills at home. He does report dysuria but no hematuria. He denies any back pain. In the emergency room, he was found to be afebrile with heart rate in the 70s. Blood pressure was in the 100 systolic. He was not tachypneic and saturating well on room air. Labs feel the white count of 9.8. Sodium is decreased at 122 and potassium is elevated at 5.4. His BUN is 59 his creatinine is 2.8. Lactic acid is elevated at 6 as well as calcium at 12.1. His alk phos was mildly elevated at 148. Total bilirubin was 1.2. AST and ALT were normal. Chest x- ray is relatively unremarkable. Head CT showed no acute abnormalities. Given the above findings, medicine was consulted for admission. I did discuss goals of care with the patient and spouse and he would like to be a full code. History - Past Medical History Cardiovascular: reports: Atrial flutter, Arrhythmia Neuro: reports: None Endocrine/Autoimmune: reports: None GI: reports: GERD : reports: None HEENT: reports: None Psych: reports: None Musculoskeletal: reports: Osteoarthritis Derm: reports: None MRSA Hx?: No - Past Surgical History General: reports: Colonoscopy, EGD HEENT: reports: Tonsil/Adenoidectomy - Family & Social History Family History Comment/Other: He reports no significant family history. Denies a family history of malignancy. Reports his father had asbestos lung disease. Living arrangement: At home Living Situation: With spouse/s.o. Social History Notes: He lives at home with his . 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 He is a non-smoker and rarely drinks alcohol. - POLST Patient has POLST: Yes Meds/Allgy - Home Medications Home Medications: Ambulatory Orders Medication Instructions Recorded Confirmed Ascorbic Acid [Vitamin C] 100 mg PO DAILY 06/18/13 07/29/20 Aspirin [Lite Coat Aspirin] 81 mg PO DAILY 06/18/13 07/29/20 Cholecalciferol (Vitamin D3) 2,000 unit PO DAILY 06/18/13 07/29/20 [Vitamin D-3] Fluticasone [Flonase] 1 sprays RYAN DAILY PRN 06/18/13 07/29/20 Multivitamin [Multivitamins] 1 each PO DAILY 06/18/13 07/29/20 Sotalol [Betapace] 80 mg PO BID 06/18/13 07/29/20 Vitamin E 100 unit PO DAILY 06/18/13 07/29/20 Magnesium Oxide [Mag Ox] 400 mg PO DAILY 07/31/18 07/29/20 Omeprazole 20 mg PO BID 07/31/18 07/29/20 Docusate Sodium [Dulcolax Stool 100 mg PO BID #30 cap 07/29/20 Softener] Doxepin [SINEquan] 10 mg PO TID PRN #30 cap 07/29/20 Oxycodone HCl/Acetaminophen 1 - 2 each PO Q6H PRN #20 tab 07/29/20 [Percocet 5-325 mg Tablet] Selenium 1 tab PO DAILY 07/29/20 07/29/20 Sulfamethox/Trimeth 800/160 1 each PO BID #20 tab 07/29/20 [Bactrim Ds 800/160] polyethylene glycoL 3350 [Miralax] 17 gm PO DAILY PRN #1 bottle 07/29/20 - Allergies Allergies/Adverse Reactions: Allergies Allergy/AdvReac Type Severity Reaction Status Date / Time No Known Drug Allergies Allergy Verified 08/10/20 13:48 Review of Systems - Constitutional Constitutional: reports: Fatigue, Malaise, Weakness, Poor appetite. denies: Fever, Chills - Ears, Nose & Throat Ears, Nose & Throat: reports: Sore throat. denies: Nasal discharge, Nasal congestion - Cardiovascular Cariovascular: denies: Chest pain, Exertional dyspnea, Decr. exercise tolerance - Respiratory Respiratory: denies: Cough - Gastrointestinal Gastrointestinal: reports: Abdominal pain. denies: Diarrhea, Nausea, Vomiting - Genitourinary Genitourinary: reports: Dysuria. denies: Urgency, Hematuria - Musculoskeletal Musculoskeletal: denies: Back pain - Integumentary Integumentary: reports: Rash - Neurological Neurological: reports: General weakness. denies: Focal weakness, Dizziness, Numbness - All Other Systems All Other Systems: reports: Reviewed and negative Prior Level of Functionality: He is normally independent with his ADLs. Exam - Vital Signs Reviewed Vital Signs: Yes Vital Signs: Vital Signs x48h Temp Pulse Resp BP Pulse Ox 08/10/20 13:42 36.0 C L 72 16 94/58 L 97 - Physical Exam General Appearance: positive: Mild distress, Lethargic Eyes Bilateral: positive: Normal inspection, PERRL, Conjunctivae nml ENT: positive: ENT inspection nml, Dry mucous membranes. negative: Pharyngeal erythema, Oral lesions Neck: positive: Nml inspection Respiratory: positive: No respiratory distress. negative: Wheezes, Rales Cardiovascular: positive: Regular rate & rhythm, No murmur. negative: Tachycardia, Systolic murmur Abdomen: positive: Nml bowel sounds, Tenderness (Right upper quadrant to deep palpation and epigastric region.). negative: Guarding, Rebound Skin: positive: Other (He has a maculopapular rash over his abdomen, back and all 4 extremities. The rash is blanching. He also has what ana). negative: No rash Extremities: positive: Pedal edema (+1 pitting edema in bilateral lower e xtremities.) Conclusion/Plan - Problem List (1) Altered mental status Conclusion/Plan: Suspect this is likely multifactorial related to sepsis from the cholecystitis versus the hyponatremia and hypercalcemia. CT the head was unremarkable. His ammonia is within normal limits. He has received IV hydration with normal saline. His labs will be followed closely to ensure his sodium was overcorrected with IV fluids. Qualifiers: Altered mental status type: somnolence Qualified Code(s): R40.0 - Somnolence (2) Cholecystitis, acute Conclusion/Plan: This was evident on MRCP obtained today. I spoke with general surgery and the concern for sepsis and multiple comorbidities, do not feel it would be appropriate to proceed with a cholecystectomy and recommended cholecystostomy tube. His LFTs are relatively unremarkable except for a mildly elevated alk phos. I did speak with surgery at [facility], Dr. Albrecht, and she is willing to consult on the patient when he arrives to [facility] in [place] but she feels he is best suited to the medical service. I did speak with Dr. Carpio of the hospitalist service and she graciously accepted the patient in transfer as long as his lactic acid was trending down. This was rechecked and it is now down to 5.1 from 6.0. Patient did receive Zosyn IV prior to transfer. Blood cultures are pending. I spoke with [facility] again and the hospitalist was concerned that the lactic acid was still quite elevated. I spoke with Dr. Vera of the ICU and she recommended repeating a BMP and lactic acid and if his sodium continues to improve and his lactic acid trending down then he can likely be transferred to the floor. She agreed that either way the patient needs to be transferred for cholecystostomy tube it would just depend on whether he will go to the ICU or the floor. I signed this out to the voice over announcer who ultimately ended up speaking with the voice over announcer at [facility] and the patient was transferred to the medical floor. (3) Acute kidney injury Conclusion/Plan: Likely prerenal in injury. His creatinine is elevated at 2.8 and his baseline is approximately 1.1. He did have a mild elevation on labs from a week ago sheba cui due to the use of Bactrim. We will hydrate him with IV fluids prior to transfer. (4) Thrombocytopenia Conclusion/Plan: This a new finding and his platelet counts are decreased in the low 80s. They were in the 110s from labs earlier this month but they were in the 200s from labs obtained in early June. It is unclear if this is related to sepsis or a consumptive process given the splenomegaly. (5) Hypercalcemia Conclusion/Plan: The etiology of his hypercalcemia is not clear at the moment. This may just be due to dehydration. He is not on a thiazide at home. We will treat him with IV fluids for the time being but at a slower rate given the hyponatremia as to not overcorrect this. The plan was to check for vitamin D, PTH, PTH related protein but given he is being transferred to [facility], will defer further work-up to the hospitalist service. (6) Hyponatremia Conclusion/Plan: Although he has +1 edema in his bilateral lower extremities, he does have dry oral mucosa and history is consistent with poor oral intake. Suspect this is likely related to hypovolemic hyponatremia. Unfortunately, serum osmolality and urine osmolality are send out labs and so we do not have these available. His TSH was normal last week so doubt hypothyroidism would be a cause. We will check a cortisol level although he has been on prednisone since June given his rash. This will need to be rechecke this evening after transfer as he has been receiving IV fluids with normal saline. (7) Splenomegaly Conclusion/Plan: This is a new finding on MRCP today. This is new compared to prior imaging from the CT of the abdomen pelvis completed on July 29. There is also note of retroperitoneal lymphadenopathy which is also a new finding. (8) Elevated lactic acid level Conclusion/Plan: This may be due to sepsis from cholecystitis or this could also be a type B lactic acidosis although the etiology of this is not clear at the moment. He did receive normal saline at 30 cc an hour in the emergency department and repeat lactic acid has improved from 6 to 5.1. (9) Rash Conclusion/Plan: The etiology of this rash is not clear but has been present now for nearly 2 months and has not had a significant response to prednisone given he has only had mild improvement. He does not report any new medications except for the Bactrim and the rash was present prior to this. (10) Paroxysmal atrial flutter Conclusion/Plan: He is on sotalol at home and is currently rate controlled and in a sinus rhythm. (11) GERD (gastroesophageal reflux disease) Conclusion/Plan: He is on protonix at home. - Lab Results Lab results reviewed: Yes Fish Bones: 08/10/20 17:45 Other Lab Results: Laboratory Results - last 24 hr 08/10/20 08/10/20 08/10/20 13:00 13:00 13:00 ESR 1 Lactic Acid Ammonia C-Reactive Protein TSH 5.07 PTH Intact Cortisol 4pm Sample 50.4 Nasal Adenovirus (PCR) Nasal B. parapertussis DNA (PCR) Nasal Coronavir 229E PCR Nasal Coronavir HKU1 PCR Nasal Coronavir NL63 PCR Nasal Coronavir OC43 PCR Nasal Enterovir/Rhinovir PCR Nasal Influenza B PCR Nasal Influenza A PCR Nasal Parainfluen 1 PCR Nasal Parainfluen 2 PCR Nasal Parainfluen 3 PCR Nasal Parainfluen 4 PCR Nasal RSV (PCR) Nasal B.pertussis DNA PCR Nasal C.pneumoniae (PCR) Ryan Human Metapneumo PCR Nasal M.pneumoniae (PCR) Nasal SARS-CoV-2 (PCR) 08/10/20 08/10/20 08/10/20 13:00 13:00 14:15 ESR Lactic Acid Ammonia 34.4 C-Reactive Protein 5.2 H TSH PTH Intact 1 L Cortisol 4pm Sample Nasal Adenovirus (PCR) Nasal B. parapertussis DNA (PCR) Nasal Coronavir 229E PCR Nasal Coronavir HKU1 PCR Nasal Coronavir NL63 PCR Nasal Coronavir OC43 PCR Nasal Enterovir/Rhinovir PCR Nasal Influenza B PCR Nasal Influenza A PCR Nasal Parainfluen 1 PCR Nasal Parainfluen 2 PCR Nasal Parainfluen 3 PCR Nasal Parainfluen 4 PCR Nasal RSV (PCR) Nasal B.pertussis DNA PCR Nasal C.pneumoniae (PCR) Ryan Human Metapneumo PCR Nasal M.pneumoniae (PCR) Nasal SARS-CoV-2 (PCR) 08/10/20 08/10/20 08/10/20 14:15 15:34 17:45 ESR Lactic Acid 6.0 H* 5.1 H* Ammonia C-Reactive Protein TSH PTH Intact Cortisol 4pm Sample Nasal Adenovirus (PCR) NOT DETECTED Nasal B. parapertussis DNA (PCR) NOT DETECTED Nasal Coronavir 229E PCR NOT DETECTED Nasal Coronavir HKU1 PCR NOT DETECTED Nasal Coronavir NL63 PCR NOT DETECTED Nasal Coronavir OC43 PCR NOT DETECTED Nasal Enterovir/Rhinovir PCR NOT DETECTED Nasal Influenza B PCR NOT DETECTED Nasal Influenza A PCR NOT DETECTED Nasal Parainfluen 1 PCR NOT DETECTED Nasal Parainfluen 2 PCR NOT DETECTED Nasal Parainfluen 3 PCR NOT DETECTED Nasal Parainfluen 4 PCR NOT DETECTED Nasal RSV (PCR) NOT DETECTED Nasal B.pertussis DNA PCR NOT DETECTED Nasal C.pneumoniae (PCR) NOT DETECTED Ryan Human Metapneumo PCR NOT DETECTED Nasal M.pneumoniae (PCR) NOT DETECTED Nasal SARS-CoV-2 (PCR) NOT DETECTED - Diagnostic Imaging Results Diagnostic Imaging Results: positive: Final report reviewed Core Measures - Anticipated LOS I expect patient to be DC'd or transferred within 96 hours.: Yes - Issues Hospital Issues and Management Plan: Patient was initially going to be admitted here for the hyponatremia and hypercalcemia but given the cholecystitis and concern for sepsis, he is now being transferred to [facility] in [place] for a cholecystostomy tube. - DVT/VTE - Prophylaxis VTE/DVT Device ordered at admit?: Yes VTE/DVT Prophylaxis med ordered at admit?: No
[2020-08-10 16:34] LABS: B. PARAPERTUSSIS- RESP PCR PAN NOT DETECTED; B. PERTUSSIS- RESP PCR PANEL NOT DETECTED; C. PNEUMONIAE- RESP PCR PANEL NOT DETECTED; CORONAVIRUS 229E-RESP PCR NOT DETECTED; CORONAVIRUS HKU1-RESP PCR NOT DETECTED; CORONAVIRUS NL63-RESP PCR NOT DETECTED; CORONAVIRUS OC43-RESP PCR NOT DETECTED; HUMAN METAPNEUMOVIRUS NOT DETECTED; INFLUENZA A- RESP PCR PANEL NOT DETECTED; INFLUENZA B - RESP PCR PANEL NOT DETECTED; M. PNEUMONIAE- RESP PCR PANEL NOT DETECTED; PARAINFLUENZA VIRUS 1 NOT DETECTED; PARAINFLUENZA VIRUS 2 NOT DETECTED; PARAINFLUENZA VIRUS 3 NOT DETECTED; PARAINFLUENZA VIRUS 4 NOT DETECTED; RHINOVIRUS/ENTEROVIRUS NOT DETECTED; RSV- RESP PCR PANEL NOT DETECTED; SARS-CoV-2 -RESP PCR PANEL NOT DETECTED
[2020-08-10] MEDS ORDERED: PIPERACILLIN/TAZOBACTAM 3.375 GM in SODIUM CHLORIDE 0.9% MINIBAG 100 ML IV STA ×3 (16:43→20:00)
[2020-08-10] MEDS ORDERED: SODIUM CHLORIDE FLUSH 0.9% 10 ML SYRINGE IVP SCH (17:00)
[2020-08-10] MEDS ORDERED: SODIUM CHLORIDE 0.9% 1,000 ML IV SCH (17:00)
--- NOTE | 2020-08-10 17:06 | CT Report ---
PROCEDURE: HEAD CT WITHOUT CONTRAST INDICATIONS: Altered mental status TECHNIQUE: Noncontrast 4.5 mm thick angled axial sections acquired from the foramen magnum to the vertex. For r adiation dose reduction, the following was used: automated exposure control, adjustment of mA and/or kV according to patient size. COMPARISON: None. FINDINGS: Image quality: Excellent. CSF spaces: Basal cisterns are patent. No extra-axial fluid collections. Ventricles are normal in size and shape. Brain: No midline shift. No intracranial masses or hemorrhage. Cardona-white matter interface is norm al. Skull and face: Calvarium and visualized facial bones are intact, without suspicious lesions. Sinuses: Visualized sinuses and mastoids are clear. IMPRESSION: Unremarkable intracranial study for age, without an imaging expiration found for the patient's presen ting history of altered mental status. Reviewed by: Nehemiah Salgado MD on 08/10/2020 3:59 PM [facility] Approved by: Nehemiah Salgado MD on 08/10/2020 3:59 PM [facility] Station ID: [id number]
--- NOTE | 2020-08-10 17:13 | XRAY Report ---
PROCEDURE: Chest 1 View X-Ray INDICATIONS: hyponatremia, confusion TECHNIQUE: One view of the chest was acquired. COMPARISON: No prior chest plain film. FINDINGS: Surgical changes and devices: None. Lungs and pleura: No pleural effusions or pneumothorax. Lungs are clear. Mediastinum: Mediastinal contours appear normal. Heart size is normal. Bones and chest wall: No suspicious bony lesions. Overlying soft tissues appear unremarkable. IMPRESSION: Reduced inspiratory volume, no aspiration or pneumonia seen. No mass lesion identified. Follow-up two -view chest is recommended after clinical syndrome has improved for improved visualization over the l kelly bases and behind the diaphragms, in this clinical circumstance. Reviewed by: Pacheco Alba MD on 08/10/2020 5:11 PM PST Approved by: Pacheco Alba MD on 08/10/2020 5:11 PM PST Station ID: [id number]
[2020-08-10] MEDS ORDERED: SODIUM CHLORIDE 0.9% 500 ML IV STA (18:43)
[2020-08-10 18:47] LABS: CREATININE 2.5 mg/dL (0.6-1.2); POTASSIUM 5.4 mmol/L (3.5-5.0)
[2020-08-10 18:50] LABS: CALCIUM 12.2 mg/dL (8.5-10.3)
[2020-08-10] MEDS ORDERED: SODIUM CHLORIDE 0.9% 1,000 ML IV ONE (19:59)
[2020-08-10 20:16] VITALS: BP 104/71
[2020-08-10] MEDS ORDERED: SOTALOL 80 MG TABLET PO SCH (21:00)
[2020-08-11] MEDS ORDERED: PANTOPRAZOLE 40 MG TABLET PO SCH (07:00)
[2020-08-11] MEDS ORDERED: HYDROCORTISONE SUCCINATE 100 MG/2 ML VIAL IVP SCH (18:40)
== END 2020-08-10 21:00 | disposition short-term general hospital (02) ==
LOC: ED 13:39 → UNDOADMIN 16:07 → MS2 16:07 → ED 21:00
DX: A41.9 Sepsis, unspecified organism (principal); K81.0 Acute cholecystitis; R65.20 Severe sepsis without septic shock; N17.9 Acute kidney failure, unspecified; E78.2 Mixed hyperlipidemia; R40.0 Somnolence; E87.1 Hypo-osmolality and hyponatremia; E83.52 Hypercalcemia; D69.6 Thrombocytopenia, unspecified; R16.1 Splenomegaly, not elsewhere classified; R59.0 Localized enlarged lymph nodes; R21 Rash and other nonspecific skin eruption; I48.92 Unspecified atrial flutter; Z79.01 Long term (current) use of anticoagulants; K21.9 Gastro-esophageal reflux disease without esophagitis; Z79.899 Other long term (current) drug therapy; E87.5 Hyperkalemia; E87.8 Other disorders of electrolyte and fluid balance, not elsewhere classified; E86.0 Dehydration; Z20.822 Contact with and (suspected) exposure to COVID-19
CPT/HCPCS: 36415; 70450; 71045; 74181; 80048; 80053; 82140; 82306; 82533; 83519; 83605; 83690; 83970; 84443; 85025; 85651; 86140; 87040; 87631; 93005; 96365; 99284; 99285; U0004; 0202U

== ENCOUNTER 2020-08-10 21:07 | Outpatient (CLI) | payer MEDICARE, OTHER | END 2020-08-10 21:08 | disposition short-term general hospital (02) | LOC: EMS 21:07 | DX: A41.9 Sepsis, unspecified organism (principal); K81.9 Cholecystitis, unspecified; E87.2 Acidosis | CPT/HCPCS: A0425; A0426 ==